=== PATIENT | male | born 1945 | race Two or more races ===

== ENCOUNTER 2018-04-24 18:13 | Inpatient (IN) | payer OTHER ==
[~2018-04-24] VITALS: Ht 177.8 cm; Wt 135.8 kg
[2018-04-24 18:48] LABS: Basophils # (auto) 0.1 uL; Basophils % (auto) 0.6 % (0.0-2.0); Eosinophils # (auto) 0.1 uL; Hematocrit 42.1 % (41.0-53.0); Hemoglobin 14.5 g/dL (13.5-17.5); Lymphocytes # (auto) 1.4 uL; Lymphocytes % (auto) 11.2 % (10.0-50.0); Mean Corpuscular Hemoglobin 30.1 pg (28.0-32.0); Mean Corpuscular Hgb Conc. 34.5 g/dL (32.0-36.0); Mean Corpuscular Volume 87.4 fL (80.0-100.0); Monocytes % (auto) 8.5 % (0.0-12.0); Neutrophils # (auto) 9.6 uL; Neutrophils % (auto) 78.7 % (37.0-80.0); Platelet Count (auto) 249 10^3/uL (140-450); Red Blood Cells 4.81 10^6/uL (4.5-5.90); Red Cell Distribution Width 14.4 % (11.8-14.3); White Blood Cell 12.1 10^3/uL (4.4-10.8)
[2018-04-24 19:03] LABS: Albumin 3.7 g/dL (3.4-5.0); Calcium 9.1 mg/dL (8.5-10.1); Magnesium 2.1 mg/dL (1.6-2.6); Potassium 4.6 mmol/L (3.5-5.1)
[2018-04-24 19:05] LABS: BUN/Creatinine Ratio 13.7
[2018-04-24 19:23] LABS: Bilirubin, Total 0.6 mg/dL (0.2-1.0); Total Protein 7.7 g/dL (6.4-8.2)
[2018-04-25] VITALS (8 sets, daily range): BP systolic 125–161; BP diastolic 53–72
[2018-04-25] MEDS ORDERED: SODIUM CHLORIDE 0.9% 1,000 ML IV SCH ×2 (00:27→22:29)
[2018-04-25] MEDS ORDERED: ONDANSETRON HCL 4 MG/2 ML VIAL IV PRN (00:30)
[2018-04-25] MEDS ORDERED: ASPirin 81 mg TAB PO ONE (00:30)
[2018-04-25] MEDS ORDERED: ENOXAPARIN SOD 100 MG/1 ML SYRINGE SC ONE (00:30)
[2018-04-25] MEDS ORDERED: TEMAZEPAM 15 MG CAP PO PRN (00:30)
[2018-04-25] MEDS ORDERED: METOPROLOL TARTRATE 25 MG TAB PO ONE (00:30)
[2018-04-25] MEDS ORDERED: ATORVASTATIN 20 MG TAB PO ONE (00:30)
[2018-04-25] MEDS ORDERED: MORPHINE SULF INJ 2 MG/ML SYRINGE 1ML IV PRN (00:30)
[2018-04-25] MEDS ORDERED: NITROGLYCERIN 0.4 MG SL TAB SL PRN (00:30)
[2018-04-25] MEDS ORDERED: HYDROcodone-ACET 5/325MG TAB PO PRN (00:30)
[2018-04-25 01:18] LABS: Cholesterol 113 mg/dL (< 200); HDL Cholesterol 25 mg/dL (40-59); Triglycerides 431 mg/dL (< 150)
[2018-04-25] MEDS ORDERED: MET50T PO (03:06)
[2018-04-25] MEDS ORDERED: SIMV10TA84 PO (03:06)
[2018-04-25] MEDS ORDERED: CLOP75TA41 PO (03:06)
[2018-04-25] MEDS ORDERED: ATOR20TA PO (03:06)
[2018-04-25] MEDS: METOPROLOL TARTRATE 25 MG TAB PO SCH ×2 (10:00→22:16)
[2018-04-25] MEDS: ASPirin 81 mg TAB PO SCH (10:13)
[2018-04-25] MEDS: PANTOPRAZOLE 40 MG TAB PO SCH (10:13)
[2018-04-25] MEDS: CLOPIDOGREL BISULFATE 75 MG TAB PO SCH (10:13)
[2018-04-25] MEDS ORDERED: DEXTROSE (50%) 50ML SYRG IV PRN (11:30)
[2018-04-25] MEDS: ACCU-CHEK COMFORT CURVE STRIP VI SCH ×3 (11:30→22:16)
[2018-04-25] MEDS ORDERED: ENOXAPARIN SOD 150 MG/1 ML SYRINGE SC ONE (11:30)
[2018-04-25] MEDS: InsuLIN REG 1unit/0.01ml Soln (100units/ml) SC SCH ×3 (11:30→22:00)
[2018-04-25 12:51] LABS: Cholesterol 111 mg/dL (< 200); HDL Cholesterol 24 mg/dL (40-59); LDL Cholesterol 55 mg/dL (< 100); Triglycerides 335 mg/dL (< 150)
[2018-04-25] MEDS: SOD CHL 0.45% 1,000 ML IV SCH ×2 (13:53→21:30)
[2018-04-25 18:55] LABS: Urine Bacteria NONE SEEN /hpf (None Seen); Urine Blood Negative /uL (Negative); Urine Mucus FEW (None Seen); Urine Specific Gravity 1.017 (1.001-1.035); Urine WBC <1 /hpf (0 - 3)
[2018-04-25 19:00] LABS: Protein, Urine 13.9 mg/dL (0.0-11.9)
[2018-04-25] MEDS ORDERED: ATORVASTATIN 20 MG TAB PO SCH (22:00)
[2018-04-25] MEDS ORDERED: PRAVASTATIN SODIUM 20 MG TAB PO SCH (22:00)
[2018-04-25] MEDS: ATORVASTATIN 20 MG TAB PO SCH (22:15)
[2018-04-25] MEDS ORDERED: diphenhdrAMINE HCL 50 MG/1 ML VL IV ONE (22:30)
[2018-04-25] MEDS ORDERED: SODIUM BICARBONATE 50ML VIAL 150 ML in D5W 5% 1,000 ML IV ONE (22:30)
[2018-04-26 05:00] VITALS: BP 127/65
[2018-04-26 06:04] LABS: Basophils # (auto) 0 uL; Basophils % (auto) 0.6 % (0.0-2.0); Eosinophils # (auto) 0.3 uL; Eosinophils % (auto) 3.9 % (0.0-7.0); Hematocrit 39.6 % (41.0-53.0); Hemoglobin 13.6 g/dL (13.5-17.5); Lymphocytes # (auto) 1.3 uL; Lymphocytes % (auto) 18.7 % (10.0-50.0); Mean Corpuscular Hgb Conc. 34.4 g/dL (32.0-36.0); Mean Corpuscular Volume 87.3 fL (80.0-100.0); Monocytes # (auto) 0.6 uL; Monocytes % (auto) 9.2 % (0.0-12.0); Neutrophils # (auto) 4.8 uL; Neutrophils % (auto) 67.6 % (37.0-80.0); Platelet Count (auto) 159 10^3/uL (140-450); Red Blood Cells 4.53 10^6/uL (4.5-5.90); Red Cell Distribution Width 14.2 % (11.8-14.3); White Blood Cell 7.1 10^3/uL (4.4-10.8)
[2018-04-26 06:31] LABS: Albumin 3.1 g/dL (3.4-5.0); BUN/Creatinine Ratio 19.4; Bilirubin, Total 0.5 mg/dL (0.2-1.0); Calcium 8.3 mg/dL (8.5-10.1); Potassium 4.5 mmol/L (3.5-5.1); Total Protein 6.7 g/dL (6.4-8.2)
[2018-04-26] MEDS: ACCU-CHEK COMFORT CURVE STRIP VI SCH ×4 (06:36→22:13)
[2018-04-26] MEDS: InsuLIN REG 1unit/0.01ml Soln (100units/ml) SC SCH ×4 (06:36→22:00)
[2018-04-26] MEDS: SOD CHL 0.45% 1,000 ML IV SCH ×2 (07:30→17:30)
[2018-04-26 08:00] VITALS: BP 137/65
[2018-04-26] MEDS: METOPROLOL TARTRATE 25 MG TAB PO SCH ×2 (09:43→22:12)
[2018-04-26] MEDS: PANTOPRAZOLE 40 MG TAB PO SCH (09:43)
[2018-04-26] MEDS: CLOPIDOGREL BISULFATE 75 MG TAB PO SCH (09:43)
[2018-04-26] MEDS: ASPirin 81 mg TAB PO SCH (09:43)
[2018-04-26] MEDS ORDERED: ENOXAPARIN SOD 150 MG/1 ML SYRINGE SC SCH ×2 (10:00→22:00)
[2018-04-26 12:00] VITALS: BP 137/75
[2018-04-26 13:50] LABS: INR 1.02 (0.9-1.15); Partial Thromboplastin Time 29.9 sec (23.78-33.04); Prothrombin Time 10.9 sec (9.27-12.13)
[2018-04-26] MEDS ORDERED: LIDOCAINE 2%HCL (LOCAL ANESTH.) INJ 10ml MDV ONE (14:18)
[2018-04-26] MEDS ORDERED: IODIXANOL 320MG/ML 100ML BTL IV ONE (14:18)
[2018-04-26] MEDS ORDERED: FUROSEMIDE 20 MG/2 ML VIAL IV ONE (15:30)
[2018-04-26] MEDS ORDERED: ANGIOMAX 250 MG VIAL IV ONE (15:44)
[2018-04-26] MEDS ORDERED: VERAPAMIL 2.5MG/ML INJ 2ML VIAL IV ONE (15:44)
[2018-04-26] MEDS ORDERED: SODIUM CHL 0.9% 50 ML ONE (15:45)
[2018-04-26] MEDS ORDERED: fentaNYL CITRATE 100 MCG/2 ML VL ONE (15:45)
[2018-04-26] MEDS ORDERED: MIDAZOLAM HCL 1MG/1ML-2 ML VIAL ONE (15:45)
[2018-04-26] MEDS ORDERED: ATROPINE SULF 1 MG/10ml SYR ONE (16:10)
[2018-04-26] MEDS ORDERED: hydrALAZINE HCL 20 MG/ML VL ONE (16:33)
[2018-04-26] MEDS ORDERED: SODIUM BICARBONATE 50ML VIAL 50 ML in D5W 5% 1,000 ML IV SCH (18:45)
[2018-04-26 20:00] VITALS: BP 136/60
[2018-04-26 22:00] VITALS: BP 136/60
[2018-04-26] MEDS: ATORVASTATIN 20 MG TAB PO SCH (22:12)
[2018-04-26] MEDS: ACETAMINOPHEN 325 MG TAB PO PRN (22:13)
[2018-04-27] MEDS: SOD CHL 0.45% 1,000 ML IV SCH ×3 (03:30→23:30)
[2018-04-27 05:00] VITALS: BP 100/48
[2018-04-27 06:35] LABS: Calcium 8.4 mg/dL (8.5-10.1); Potassium 4.2 mmol/L (3.5-5.1)
[2018-04-27 06:44] LABS: Basophils # (auto) 0 uL; Basophils % (auto) 0.4 % (0.0-2.0); Eosinophils # (auto) 0.1 uL; Hemoglobin 13.5 g/dL (13.5-17.5); Lymphocytes # (auto) 0.9 uL; Lymphocytes % (auto) 11.2 % (10.0-50.0); Mean Corpuscular Hemoglobin 29.6 pg (28.0-32.0); Mean Corpuscular Hgb Conc. 33.9 g/dL (32.0-36.0); Mean Corpuscular Volume 87.3 fL (80.0-100.0); Monocytes # (auto) 0.8 uL; Monocytes % (auto) 9.4 % (0.0-12.0); Neutrophils # (auto) 6.5 uL; Nucleated Red Blood Cells % 0.1 %; Platelet Count (auto) 184 10^3/uL (140-450); Red Blood Cells 4.58 10^6/uL (4.5-5.90); Red Cell Distribution Width 14.2 % (11.8-14.3); White Blood Cell 8.3 10^3/uL (4.4-10.8)
[2018-04-27 06:45] LABS: BUN/Creatinine Ratio 16.6
[2018-04-27] MEDS: ACCU-CHEK COMFORT CURVE STRIP VI SCH ×4 (06:52→22:05)
[2018-04-27] MEDS: InsuLIN REG 1unit/0.01ml Soln (100units/ml) SC SCH ×4 (06:52→22:00)
[2018-04-27] MEDS: ACETAMINOPHEN 325 MG TAB PO PRN ×2 (08:58→19:33)
[2018-04-27 09:00] VITALS: BP 111/57
[2018-04-27] MEDS: PANTOPRAZOLE 40 MG TAB PO SCH (10:33)
[2018-04-27] MEDS: CLOPIDOGREL BISULFATE 75 MG TAB PO SCH (10:34)
[2018-04-27] MEDS: ASPirin 81 mg TAB PO SCH (10:35)
[2018-04-27] MEDS: METOPROLOL TARTRATE 25 MG TAB PO SCH ×2 (10:35→22:05)
[2018-04-27 13:00] VITALS: BP 152/74
[2018-04-27 17:20] VITALS: BP 138/56
[2018-04-27 20:00] VITALS: BP 150/77
[2018-04-27 22:00] VITALS: BP 150/77
[2018-04-27] MEDS: ATORVASTATIN 20 MG TAB PO SCH (22:00)
[2018-04-28 05:00] VITALS: BP 129/53
[2018-04-28 05:47] LABS: Basophils # (auto) 0 uL; Basophils % (auto) 0.5 % (0.0-2.0); Eosinophils # (auto) 0.1 uL; Eosinophils % (auto) 1.3 % (0.0-7.0); Hematocrit 40.3 % (41.0-53.0); Hemoglobin 13.7 g/dL (13.5-17.5); Lymphocytes # (auto) 1.3 uL; Mean Corpuscular Hemoglobin 29.5 pg (28.0-32.0); Mean Corpuscular Hgb Conc. 33.9 g/dL (32.0-36.0); Mean Corpuscular Volume 87.2 fL (80.0-100.0); Monocytes # (auto) 0.8 uL; Monocytes % (auto) 9.1 % (0.0-12.0); Neutrophils # (auto) 6.2 uL; Neutrophils % (auto) 74.1 % (37.0-80.0); Nucleated Red Blood Cells % 0.1 %; Platelet Count (auto) 180 10^3/uL (140-450); Red Blood Cells 4.62 10^6/uL (4.5-5.90); Red Cell Distribution Width 14.6 % (11.8-14.3); White Blood Cell 8.4 10^3/uL (4.4-10.8)
[2018-04-28 06:06] LABS: BUN/Creatinine Ratio 16.4; Calcium 8.4 mg/dL (8.5-10.1)
[2018-04-28] MEDS: InsuLIN REG 1unit/0.01ml Soln (100units/ml) SC SCH ×2 (06:42→11:30)
[2018-04-28] MEDS: ACCU-CHEK COMFORT CURVE STRIP VI SCH ×2 (06:42→11:30)
[2018-04-28 08:00] VITALS: BP 135/59
[2018-04-28 08:18] VITALS: BP 135/59
[2018-04-28] MEDS: PANTOPRAZOLE 40 MG TAB PO SCH (09:20)
[2018-04-28] MEDS: CLOPIDOGREL BISULFATE 75 MG TAB PO SCH (09:20)
[2018-04-28] MEDS: ASPirin 81 mg TAB PO SCH (09:21)
[2018-04-28] MEDS: SOD CHL 0.45% 1,000 ML IV SCH (09:30)
[2018-04-28] MEDS: METOPROLOL TARTRATE 25 MG TAB PO SCH ×2 (10:00→13:08)
== END 2018-04-28 14:01 | disposition home or self-care (01) | DRG 246 ==
LOC: ER 18:20 → TELE 18:21 → TELE-WESTW 04-25 02:20
PROVIDERS: ADMIT Nurse Practitioner; ATTEND Internal Medicine
PROC: 027137Z Dilation of Coronary Artery, Two Arteries with Four or More Drug-eluting Intraluminal Devices, Percutaneous Approach (ICD-10-PCS; principal; 2018-04-26)
PROC: 4A023N7 Measurement of Cardiac Sampling and Pressure, Left Heart, Percutaneous Approach (ICD-10-PCS; 2018-04-26)
PROC: B2111ZZ Fluoroscopy of Multiple Coronary Arteries using Low Osmolar Contrast (ICD-10-PCS; 2018-04-26)
PROC: B2151ZZ Fluoroscopy of Left Heart using Low Osmolar Contrast (ICD-10-PCS; 2018-04-26)
DX: I21.4 Non-ST elevation (NSTEMI) myocardial infarction (principal); N17.0 Acute kidney failure with tubular necrosis; E44.1 Mild protein-calorie malnutrition; Z68.41 Body mass index [BMI] 40.0-44.9, adult; E66.01 Morbid (severe) obesity due to excess calories; E78.5 Hyperlipidemia, unspecified; I12.9 Hypertensive chronic kidney disease with stage 1 through stage 4 chronic kidney disease, or unspecified chronic kidney disease; R73.9 Hyperglycemia, unspecified; I25.10 Atherosclerotic heart disease of native coronary artery without angina pectoris; J44.9 Chronic obstructive pulmonary disease, unspecified; N18.9 Chronic kidney disease, unspecified; Z82.49 Family history of ischemic heart disease and other diseases of the circulatory system; Z79.82 Long term (current) use of aspirin; Z79.899 Other long term (current) drug therapy
CPT/HCPCS: 36415; 71046; 76775; 80048; 80053; 80061; 81001; 82550; 82553; 82570; 82962; 83036; 83735; 84156; 84484; 85025; 85379; 85610; 85730; 92928; 93005; 93306; 93458; 94761; 96372; 99152; A6257; C1874; J1815; J2001; J2250; J2405; Q9967